=== PATIENT | male | born 1995 | race Two or more races ===

== ENCOUNTER → 2016-03-18 | Outpatient (REF) | payer OTHER | LOC: M SMT 13:01 | PROVIDERS: ATTEND Nurse Practitioner Family | DX: N50.819 Testicular pain, unspecified (principal) | CPT/HCPCS: 81001; 87086; 87491; 87591; G0463 ==

== ENCOUNTER → 2016-03-30 | Outpatient (CLI) | payer OTHER ==
--- NOTE | 2016-03-30 13:27 | REP ---
Clinical: Testicular pain. Technique: Mcguire scale and color Doppler evaluation using linear and curved array transducer with color Doppler evaluation. Findings: The testicles and epididymi are relatively normal in contour, size, echogenicity, vascularity and overall appearance/contour. Incidental note is made of a small bilateral epididymal head cysts up to 2.2 mm. There is no evidence for intratesticular mass lesion, infectious/inflammatory process, with torsion. Small left hydrocele is nonspecific. No significant varicoceles with vessels measuring up to 3 mm on Valsalva. Right testicle measures 5.0 x 2.5 x 3.1 cm. Left testicle measures 4.8 x 2.1 x 3.2 cm. Impression: Essentially normal scrotal ultrasound. Small bilateral epididymal head cysts up to 2.2 mm. Small left hydrocele is nonspecific. Signed by Bassam Conn MD 03/30/2016 01:18 P
== END ==
LOC: EDUNIT# 03-26 14:00 → M SMT 11:52
PROVIDERS: ATTEND Nurse Practitioner Family
DX: N50.819 Testicular pain, unspecified (principal); N43.3 Hydrocele, unspecified; N50.3 Cyst of epididymis

== ENCOUNTER 2019-01-20 10:37 | Emergency (ER) | payer OTHER ==
[~2019-01-20] VITALS: Ht 182.9 cm; Wt 94.0 kg
[2019-01-20] MEDS ORDERED: TYLENOL500 (10:47)
--- NOTE | 2019-01-20 11:46 | REP ---
CT brain: 01/20/2019. Indication: Head trauma. Comparison: None. Technique: Unenhanced axial CT images of the brain were obtained from skull base to vertex. Findings: There is no acute intracranial hemorrhage, acute cortical infarction, mass effect, hydrocephalus or acute calvarial fracture. Periosteal mucosal thickening is noted within the ethmoid air cells. Small bilateral mastoid effusions are present. Impression: No acute intracranial process. Electronically Signed by Juliano Odell DO 01/20/2019 11:38 A
[2019-01-20] MEDS ORDERED: IBUPROFEN 800 MG TAB PO ONE (12:15)
[2019-01-20] MEDS ORDERED: IBUP80TA PO (12:15)
[2019-01-20 12:24] VITALS: BP 133/65
== END 2019-01-20 12:28 | disposition home or self-care (01) ==
LOC: M ED 10:37
DX: S09.90XA Unspecified injury of head, initial encounter (principal); S33.5XXA Sprain of ligaments of lumbar spine, initial encounter; V43.52XA Car driver injured in collision with other type car in traffic accident, initial encounter; Y92.9 Unspecified place or not applicable; Y93.9 Activity, unspecified; Y99.9 Unspecified external cause status

== ENCOUNTER 2020-06-13 10:20 | Emergency (ER) | payer OTHER ==
[~2020-06-13] VITALS: Ht 182.9 cm; Wt 93.2 kg
[~2020-06-13 10:20] MED LIST: IBUP80TA PO; TYLENOL500
--- NOTE | 2020-06-13 11:08 | REP ---
INDICATION: r/o torsion COMPARISON: 03/30/2016 TECHNIQUE: Mcguire scale and color Doppler evaluation using linear and curved array transducer with color Doppler evaluation. FINDINGS: The testicles and epididymi are relatively normal in contour, size, echogenicity, vascularity and overall appearance. Incidental 1 mm and 2 mm left epididymal head cysts noted. There is no evidence for intratesticular mass lesion, infectious/inflammatory process, or torsion. No obvious hydroceles or varicoceles are identified. Right testicle measures 4.8 x 2.4 x 3.2 cm. Left testicle measures 4.7 x 2.3 x 2.5 cm. IMPRESSION: Essentially normal scrotal ultrasound. No evidence for torsion. <Electronically signed by Bassam Conn > 06/13/20 [id number]
[2020-06-13] MEDS ORDERED: ACETAMINOPHEN 500 MG TAB PO ONE (11:30)
--- NOTE | 2020-06-13 12:36 | REP ---
INDICATION: b/l flank pain, testicular pain, h/o stones, hematuria COMPARISON: None. TECHNIQUE: CT Scan of the abdomen and pelvis was performed without intravenous contrast. Sagittal and coronal reconstruction images performed. FINDINGS: Lung bases: Unremarkable. Liver: Grossly unremarkable. Gallbladder: Unremarkable. Spleen: Grossly unremarkable. Adrenals: Normal. Pancreas: Grossly unremarkable.. Kidneys: No hydronephrosis or nephrolithiasis. Ureters demonstrate no dilatation or calculus. Small and large bowel: Grossly unremarkable. Free fluid: None. Abdominal aorta: No aneurysm. Adenopathy: None. Appendix: Prior appendectomy. Osseous structures: Unremarkable. Pelvis: No mass. No bladder calculus seen. IMPRESSION: Negative non-contrast CT abdomen and pelvis. <Electronically signed by Enzo Mcguire > 06/13/20 [id number]
[2020-06-13 12:57] LABS: BASO # 0.1 10^3/uL (0.0-0.2); BASO % 0.5 % (0.0-1.0); EOS # 0.1 10^3/uL (0.0-0.5); EOS % 1.1 % (0.0-3.0); HEMOGLOBIN 13.6 g/dl (13.5-17.5); LYMPH # 1.9 10^3/uL (1.5-5.0); LYMPH % 17.8 % (24.0-44.0); MEAN CORPUSCULAR HEMOGLOBIN 30.9 pg (27.0-33.0); MEAN CORPUSCULAR HGB CONC 32.4 g/dl (32.0-36.5); MEAN CORPUSCULAR VOLUME 95.5 fl (80.0-96.0); MONO # 0.6 10^3/uL (0.0-0.8); MONO % 5.8 % (2.0-8.0); NEUTROPHILS # 7.7 10^3/uL (1.5-8.5); NEUTROPHILS % 74.3 % (36.0-66.0); PLATELET COUNT, AUTOMATED 255 10^3/uL (150-450); WHITE BLOOD COUNT 10.4 10^3/uL (4.0-10.0)
[2020-06-13 13:27] LABS: ALBUMIN 4.9 GM/DL (3.2-5.2); ALT/SGPT 26 U/L (12-78); BILIRUBIN,DIRECT 0.2 MG/DL (0.0-0.2); BILIRUBIN,TOTAL 0.6 MG/DL (0.2-1.0); BLOOD UREA NITROGEN 15 MG/DL (7-18); CALCIUM LEVEL 9.4 MG/DL (8.5-10.1); CARBON DIOXIDE LEVEL 27 MEQ/L (21-32); CHLORIDE LEVEL 106 MEQ/L (98-107); CREATININE FOR GFR 0.91 MG/DL (0.70-1.30); GLOMERULAR FILTRATION RATE > 60.0 (>60); GLUCOSE, FASTING 69 MG/DL (70-100); POTASSIUM SERUM 4.3 MEQ/L (3.5-5.1); SODIUM LEVEL 139 MEQ/L (136-145); TOTAL PROTEIN 7.7 GM/DL (6.4-8.2)
[2020-06-13 13:52] VITALS: BP 133/69
== END 2020-06-13 13:55 | disposition home or self-care (01) ==
LOC: M ED 10:20
DX: N50.819 Testicular pain, unspecified (principal); R31.21 Asymptomatic microscopic hematuria; R11.0 Nausea; F17.200 Nicotine dependence, unspecified, uncomplicated

== ENCOUNTER 2020-08-20 10:13 | Emergency (ER) | payer OTHER ==
[~2020-08-20] VITALS: Ht 182.9 cm; Wt 92.5 kg
[2020-08-20] MEDS ORDERED: IBUP-1720 PO (10:32)
[2020-08-20] MEDS ORDERED: ACET500P3 PO (10:32)
[2020-08-20] MEDS ORDERED: LIDO1.1P TOP (10:32)
[2020-08-20] MEDS ORDERED: methocarbamoL 750 MG TAB PO ONE (12:25)
[2020-08-20] MEDS ORDERED: KETOROLAC 60MG 2ML VIAL IM ONE (12:30)
--- NOTE | 2020-08-20 12:46 | REP ---
INDICATION: fell off truck inc pain. COMPARISON: Comparison CT study abdomen pelvis June 13, 2020.. TECHNIQUE: Helical scanning is acquired and axial 4 mm images re-formatted. Coronal and sagittal MPR images are generated and reviewed. Motion artifact is observed at the thoracolumbar junction on the initial acquisition and this segment was repeated. FINDINGS: There is straightening of the normal lumbar lordosis. Vertebral body heights are preserved. No fracture or collapse is seen. Pedicles and posterior elements are intact. No posterior element fracture is seen. There is no evidence of spondylolysis or spondylolisthesis. There is no visible disc protrusion. No bony neural foraminal encroachment is seen. No perispinal or intraspinal hematoma or mass lesion is observed. IMPRESSION: Straightening. No traumatic abnormality noted. <Electronically signed by Mane Etienne > 08/20/20 [id number]
--- NOTE | 2020-08-20 12:48 | REP ---
INDICATION: fell off truck inc pain. COMPARISON: None. TECHNIQUE: Helical scanning is acquired and axial 4 mm slices are re-formatted. Coronal and sagittal MPR images are provided. FINDINGS: Digital preliminary health care assistant views demonstrate a mild dextroconvex thoracic curvature. On CT images, the thoracic vertebral body heights are preserved alignment is otherwise normal. No fracture or collapse is seen. There is some motion artifact on the initial sequence at the thoracolumbar junction level. This portion of the thoracolumbar spine was Ree acquired and is unremarkable. No intraspinal or perispinal hematoma is seen. No posterior element or posterior rib fracture is appreciated. The visualized lung james are clear. IMPRESSION: No fracture or other traumatic abnormality noted. Straightening and a dextroconvex scoliotic curve are present. <Electronically signed by Mane Etienne > 08/20/20 [id number]
[2020-08-20] MEDS ORDERED: KETO10TAB PO (13:17)
[2020-08-20] MEDS ORDERED: METH-1165 PO (13:17)
[2020-08-20 13:24] VITALS: BP 140/79
== END 2020-08-20 13:26 | disposition home or self-care (01) ==
LOC: M ED 10:13
DX: M54.5 Low back pain (principal)
CPT/HCPCS: 72128; 72131; 96372; 99283; J1885

== ENCOUNTER → 2020-11-06 | Outpatient (CLI) | payer OTHER ==
[~2020-11-06] MED LIST changes: +ACET500P3 PO; +IBUP-1720 PO; +KETO10TAB PO; +LIDO1.1P TOP; +METH-1165 PO
[2020-11-06 08:41] LABS: PLATELET COUNT, AUTOMATED 241 10^3/uL (150-450)
[2020-11-06 08:53] LABS: INR 0.95; PROTHROMBIN TIME 13.1 SECONDS (12.7-14.5)
[2020-11-06 08:57] LABS: COLLAGEN EPINEPHRINE 140 SECONDS (74-162)
[2020-11-06 09:09] LABS: PARTIAL THROMBOPLASTIN TIME 29.8 SECONDS (25.9-37.0)
== END ==
LOC: M LAB 08:11
PROVIDERS: ATTEND Physical Medicine & Rehabilitation
DX: M51.36 Other intervertebral disc degeneration, lumbar region (principal)

== ENCOUNTER → 2021-01-22 | Outpatient (REF) ==
--- NOTE | 2021-01-22 15:56 | REP ---
INDICATION: INTERVERTEBRAL DISC DISPLACEMENT, LUMBAR REGION COMPARISON: None. TECHNIQUE: AP, lateral, coned-down views of the lumbar spine. FINDINGS: Three views of the lumbosacral spine demonstrate satisfactory alignment and lordosis without acute fracture / compression injury or subluxation. Examination is age-appropriate and without degenerative or congenital abnormalities noted. IMPRESSION: 1. No acute fracture / compression injury or subluxation. 2. No significant degenerative changes <Electronically signed by Bassam Conn > 01/22/21 [id number]
== END ==
LOC: M PLAIMG 14:37
PROVIDERS: ATTEND Internal Medicine
DX: M54.50 Low back pain, unspecified (principal)